=== PATIENT | female | born 1965 | race Caucasian/White ===

== ENCOUNTER 2017-05-08 20:11 | Emergency (ER) | payer MEDICARE, OTHER ==
[2017-05-08 20:22] VITALS: BP 118/58; PULSE 77; RESP 18; TEMP 97.9
[2017-05-08] MEDS ORDERED: diphenhydrAMINE 50 MG CAP PO STA (20:39)
--- NOTE | 2017-05-08 20:40 | ED ---
Skin/Abscess/FB HPI - General Chief complaint: Skin/Abscess/Foreign Body Stated complaint: Rash/Legs Time Seen by Provider: 05/08/17 20:34 Source: patient, RN notes reviewed, old records reviewed Mode of arrival: ambulatory Limitations: no limitations - History of Present Illness Initial comments: This is a 52-year-old female presenting to the emergency department with a chief complaint of bug bites over bilateral Lower legs for the past 8 hours. Patient reports that they are very pruritic. She reports that she was walking outside most of the day. Denies concern for fleas. She reports that she has no other areas that have similiar bites. She denies other exposures that she is aware of. She denies any chest pain, shortness of breath, angioedema, nausea, vomiting, fever, or chills. - Related Data Home Medications Medication Instructions Recorded Confirmed Glimepiride [Amaryl] 1 mg PO BID 11/14/14 02/26/16 metFORMIN HCL [Glucophage] 500 mg PO BID 11/14/14 02/26/16 Previous Rx's Medication Instructions Recorded Ibuprofen [Motrin] 600 mg PO Q6HR PRN #20 tab 11/14/14 Cetirizine HCl [Zyrtec] 10 mg PO DAILY #20 tab 07/06/15 Famotidine [Pepcid] 20 mg PO BID #30 tablet 07/06/15 Cephalexin [Keflex] 500 mg PO Q8HR #30 cap 02/26/16 Sulfamethoxazole/Trimethoprim 1 tab PO Q12H #20 tab 02/26/16 [Bactrim DS 800-160 mg] Hydrocortisone Cream 1 applic TOPICAL QID #1 tube 05/08/17 [Hydrocortisone 1% Cream] diphenhydrAMINE & Zinc Cream 1 applic TOPICAL TID #1 tube 05/08/17 [Benadryl Cream] Allergies Allergy/AdvReac Type Severity Reaction Status Date / Time No Known Allergies Allergy Verified 05/08/17 20:22 Review of Systems ROS Statement: Those systems with pertinent positive or pertinent negative responses have been documented in the HPI. ROS Other: All systems not noted in ROS Statement are negative. Past Medical History Past Medical History: Diabetes Mellitus History of Any Multi-Drug Resistant Organisms: None Reported Past Surgical History: Section Past Psychological History: Bipolar, Depression Smoking Status: Never smoker Past Alcohol Use History: None Reported Past Drug Use History: None Reported General Exam - General Exam Comments Initial Comments: 52 year old female, no distress. Limitations: no limitations General appearance: alert, in no apparent distress Head exam: Present: atraumatic, normocephalic, normal inspection Eye exam: Present: normal appearance, PERRL, EOMI. Absent: scleral icterus, conjunctival injection, periorbital swelling ENT exam: Present: normal exam, mucous membranes moist. Absent: normal oropharynx (poor dentition noted. ) Neck exam: Present: normal inspection. Absent: tenderness, meningismus, lymphadenopathy Respiratory exam: Present: normal lung sounds bilaterally. Absent: respiratory distress, wheezes, rales, rhonchi, stridor Cardiovascular Exam: Present: regular rate, normal rhythm, normal heart sounds. Absent: systolic murmur, diastolic murmur, rubs, gallop, clicks GI/Abdominal exam: Present: soft, normal bowel sounds. Absent: distended, tenderness, guarding, rebound, rigid Back exam: Present: normal inspection Neurological exam: Present: alert, oriented X3, CN II-XII intact Psychiatric exam: Present: normal affect, normal mood Skin exam: Present: warm, dry, intact, normal color, rash (sporadic erythematous welts over bilateral shins. She is wearing a dress, so these areas were exposed to the elements and long grasses. ) Course Vital Signs 05/08/17 20:20 Temperature 97.9 F Pulse Rate 77 Respiratory 18 Rate Blood Pressure 118/58 O2 Sat by Pulse 98 Oximetry Medical Decision Making - Medical Decision Making This is a 52-year-old female presenting to the emergency department with a chief complaint of bug bites over bilateral Lower legs for the past 8 hours. Patient reports that they are very pruritic. She reports that she was walking outside most of the day. Patient does have sporadic erythematous welts over bilateral legs, consistent with insect bite. PAtient given benadryl, and prescription for hydrocortizone cream. Return parameters discussed. Disposition Clinical Impression: Insect bites Disposition: HOME SELF-CARE Condition: Good Additional Instructions: Patient advised to apply the cream over the area. Follow-up with primary care physician. Return to emergency department if any alarming signs or symptoms occur. Prescriptions: diphenhydrAMINE & Zinc Cream [Benadryl Cream] 1 applic TOPICAL TID #1 tube Hydrocortisone Cream [Hydrocortisone 1% Cream] 1 applic TOPICAL QID #1 tube Referrals: Mike Sevilla MD [Primary Care Provider] - 1-2 days Time of Disposition: 20:41
== END 2017-05-08 20:51 | disposition home or self-care (01) ==
LOC: EC 20:11
DX: S80.861A Insect bite (nonvenomous), right lower leg, initial encounter (principal); S80.862A Insect bite (nonvenomous), left lower leg, initial encounter; E11.9 Type 2 diabetes mellitus without complications; Z79.84 Long term (current) use of oral hypoglycemic drugs; W57.XXXA Bitten or stung by nonvenomous insect and other nonvenomous arthropods, initial encounter
CPT/HCPCS: 99283

== ENCOUNTER 2017-10-16 15:07 | Emergency (ER) | payer MEDICARE, OTHER ==
[2017-10-16 15:14] VITALS: BP 144/62; PULSE 70; RESP 18; TEMP 98
[2017-10-16] MEDS ORDERED: DIPH,PERTUS(ACELL)TETVAC-LF 0.5 ML VIAL IM ONE (15:16)
--- NOTE | 2017-10-16 15:42 | ED ---
Skin/Abscess/FB HPI - General Chief complaint: Skin/Abscess/Foreign Body Stated complaint: Hand Lac Time Seen by Provider: 10/16/17 15:15 Source: patient, RN notes reviewed Mode of arrival: ambulatory Limitations: no limitations - History of Present Illness Initial comments: This is a 52-year-old female who presents to the emergency department with chief complaint of hand laceration. Patient states that yesterday morning she was washing dishes and a glass broke cutting the ulnar aspect of her left hand. Patient states that she did not have transportation to the emergency department so contacted EMS. EMS dressed the wound and advised patient to follow up at the emergency department. Patient states she is not up-to-date with her tetanus vaccination. Denies any other injuries. Denies fever, chills, chest pain, shortness of breath, abdominal pain, nausea or vomiting, constipation or diarrhea, dysuria or hematuria, numbness or tingling, headache or vision changes. - Related Data Home Medications Medication Instructions Recorded Confirmed Glimepiride [Amaryl] 1 mg PO BID 11/14/14 10/16/17 metFORMIN HCL [Glucophage] 500 mg PO BID 11/14/14 10/16/17 Previous Rx's Medication Instructions Recorded Cephalexin [Keflex] 500 mg PO Q12HR #20 cap 10/16/17 Allergies Allergy/AdvReac Type Severity Reaction Status Date / Time No Known Allergies Allergy Verified 05/08/17 20:22 Review of Systems ROS Statement: Those systems with pertinent positive or pertinent negative responses have been documented in the HPI. ROS Other: All systems not noted in ROS Statement are negative. Past Medical History Past Medical History: Diabetes Mellitus History of Any Multi-Drug Resistant Organisms: None Reported Past Surgical History: Section, Tubal Ligation Past Psychological History: Bipolar, Depression Smoking Status: Never smoker Past Alcohol Use History: None Reported Past Drug Use History: None Reported General Exam - General Exam Comments Initial Comments: General: Awake and alert, well-developed; in no apparent distress. HEENT: Head atraumatic, normocephalic. Pupils are equal, round and reactive to light. Extraocular movements intact. Poor dentition. Neck: Supple. Normal ROM. Cardiovascular: Regular rate and rhythm. No murmurs, rubs or gallops. Chest symmetrical. Respiratory: Lungs clear to auscultation bilaterally. No wheezes, rales or rhonchi. Normal respiratory effort with no use of accessory muscles. Musculoskeletal: Normal range of motion of left hand and digits. Sensation is intact. Radial pulses are 2+ equal and palpable bilaterally. Skin: [place], warm and dry without rashes. Skin avulsion with remaining skin flap at the left fifth MCP. Bleeding is controlled. Neurological: Alert and oriented x3. CN II-XII grossly intact. Speech is fluent and answers are appropriate. No focal neuro deficits. Psychiatric: Normal mood and affect. No overt signs of depression or anxiety noted. Limitations: no limitations Course Vital Signs 10/16/17 15:10 Temperature 98 F Pulse Rate 70 Respiratory 18 Rate Blood Pressure 144/62 O2 Sat by Pulse 98 Oximetry Medical Decision Making - Medical Decision Making This is a 52-year-old female who presents to the emergency department with chief complaint of left hand laceration. There is a superficial skin avulsion located and left fifth MCP. The wound was extensively irrigated and skin flap was removed. Bleeding is controlled. Bacitracin and a clean dressing were placed. Patient tolerated well without complication. She is neurovascularly intact. Patient will be discharged home. She is going to receive a prescription for antibiotics. Return parameters were discussed. Patient is in agreement with plan and voices understanding. All questions were answered. Disposition Clinical Impression: Avulsion of skin of finger Disposition: HOME SELF-CARE Condition: Good Instructions: Skin Avulsion (ED) Additional Instructions: Please take medications as prescribed. Please follow up with primary care provider within 1-2 days. Return to emergency department if symptoms should worsen or any concerns arise. Prescriptions: Cephalexin [Keflex] 500 mg PO Q12HR #20 cap Referrals: Mike Sevilla MD [Primary Care Provider] - 1-2 days Time of Disposition: 15:41
== END 2017-10-16 16:08 | disposition home or self-care (01) ==
LOC: EC 15:07
DX: S61.402A Unspecified open wound of left hand, initial encounter (principal); E11.9 Type 2 diabetes mellitus without complications; Z23 Encounter for immunization; Z79.84 Long term (current) use of oral hypoglycemic drugs; W25.XXXA Contact with sharp glass, initial encounter; Y93.G1 Activity, food preparation and clean up
CPT/HCPCS: 90471; 90715; 99282

== ENCOUNTER → 2018-09-07 | Outpatient (CLI) | payer MEDICARE, OTHER ==
--- NOTE | 2018-09-10 11:43 | MM ---
Reason for exam: screening (asymptomatic). Last mammogram was performed 4 years and 10 months ago. History: Taking hormonal contraceptives. Physical Findings: A clinical breast exam by your physician is recommended on an annual basis and results should be correlated with mammographic findings. MG 3D Screening Mammo W/Cad Bilateral CC and MLO view(s) were taken. Prior study comparison: November 12, 2013, bilateral digital screening mammo w/CAD. November 11, 2011, bilateral digital screening mammo w/CAD. The breast tissue is heterogeneously dense. This may lower the sensitivity of mammography. Finding #1: There is a 10 mm equal density (isodense) mass in the central position of the right breast. Finding #2: There are typically benign calcifications. ASSESSMENT: Incomplete: need additional imaging evaluation, BI-RAD 0 RECOMMENDATION: Special view mammogram of the right breast. If lesion persists on supplemental views, image directed ultrasound is recommended. [facility] will attempt to contact patient to return for supplemental views and ultrasound if indicated.
== END ==
LOC: RADMAMWWP 10:57
PROVIDERS: ATTEND Family Medicine
DX: Z12.31 Encounter for screening mammogram for malignant neoplasm of breast (principal)
CPT/HCPCS: 77063; 77067

== ENCOUNTER → 2018-10-12 | Outpatient (CLI) | payer MEDICARE, OTHER ==
--- NOTE | 2018-10-12 15:01 | MM ---
Reason for exam: additional evaluation requested from abnormal screening. Last mammogram was performed 1 month ago. History: Patient is postmenopausal. Physical Findings: Nurse did not find any significant physical abnormalities on exam. MG 3D Work Up W/Cad RT Spot compression CC, spot compression MLO, spot compression ML, and ML view(s) were taken of the right breast. Prior study comparison: September 07, 2018, bilateral MG 3d screening mammo w/cad. November 12, 2013, bilateral digital screening mammo w/CAD. The breast tissue is heterogeneously dense. This may lower the sensitivity of mammography. There is no discrete abnormality on compression. These results were verbally communicated with the patient and result sheet given to the patient on 10/12/18. ASSESSMENT: Probably benign, BI-RAD 3 RECOMMENDATION: Follow-up diagnostic mammogram of the right breast in 6 months.
== END | disposition home or self-care (01) ==
LOC: RADMAMWWP 13:00
PROVIDERS: ATTEND Family Medicine
DX: R92.8 Other abnormal and inconclusive findings on diagnostic imaging of breast (principal)
CPT/HCPCS: 77065; G0279; 77061

== ENCOUNTER 2019-04-16 16:09 | Emergency (ER) | payer MEDICARE, OTHER ==
[2019-04-16 16:19] VITALS: BP 114/75; PULSE 63; RESP 18; TEMP 98.3
--- NOTE | 2019-04-16 16:47 | ED ---
Abdominal Pain HPI - General Chief Complaint: Abdominal Pain Stated Complaint: scar pain Time Seen by Provider: 04/16/19 16:31 Source: patient, RN notes reviewed Mode of arrival: ambulatory Limitations: no limitations - History of Present Illness Initial Comments: 53-year-old female presents emergency from chief complaint rash in her lower abd omen. Patient states it's along his ear infection region. Patient states started a few days ago site red and irritated. Patient has not placed anything on this area she's not exactly sure when it started. Patient denies fever, chills no nausea vomiting diarrhea constipation. - Related Data Home Medications Medication Instructions Recorded Confirmed Glimepiride [Amaryl] 1 mg PO BID 11/14/14 01/19/18 metFORMIN HCL [Glucophage] 500 mg PO BID 11/14/14 01/19/18 FLUoxetine HCL [PROzac] 40 mg PO DAILY 01/19/18 01/19/18 Previous Rx's Medication Instructions Recorded Nystatin 100,000Unit/gm Cream 1 applic TOPICAL BID #30 gram 04/16/19 [Mycostatin Cream] Allergies Allergy/AdvReac Type Severity Reaction Status Date / Time No Known Allergies Allergy Verified 04/16/19 16:19 Review of Systems ROS Statement: Those systems with pertinent positive or pertinent negative responses have been documented in the HPI. ROS Other: All systems not noted in ROS Statement are negative. Past Medical History Past Medical History: Diabetes Mellitus History of Any Multi-Drug Resistant Organisms: None Reported Past Surgical History: Section, Tubal Ligation Past Psychological History: Bipolar, Depression Smoking Status: Never smoker Past Alcohol Use History: None Reported Past Drug Use History: None Reported General Exam Limitations: no limitations General appearance: alert, in no apparent distress Head exam: Present: atraumatic, normocephalic, normal inspection Eye exam: Present: normal appearance, PERRL, EOMI. Absent: scleral icterus, conjunctival injection, periorbital swelling ENT exam: Present: normal exam, normal oropharynx, mucous membranes moist Respiratory exam: Present: normal lung sounds bilaterally. Absent: respiratory distress, wheezes, rales, rhonchi, stridor Cardiovascular Exam: Present: regular rate, normal rhythm, normal heart sounds. Absent: systolic murmur, diastolic murmur, rubs, gallop, clicks GI/Abdominal exam: Present: soft, normal bowel sounds. Absent: distended, tenderness, guarding, rebound, rigid Skin exam: Present: warm, dry, intact, normal color, rash (Erythematous rash with foul odor in lower abdominal skin fold) Course Vital Signs 04/16/19 16:15 Temperature 98.3 F Pulse Rate 63 Respiratory 18 Rate Blood Pressure 114/75 O2 Sat by Pulse 98 Oximetry Medical Decision Making - Medical Decision Making 53-year-old female presented for lower abdominal rash. Patient has candidal intertrigo PATIENT WE DISCHARGED WITH [facility]. Disposition Clinical Impression: Candidal intertrigo Disposition: HOME SELF-CARE Condition: Stable Instructions (If sedation given, give patient instructions): Tinea Corporis (ED) Additional Instructions: Please return to the Emergency Department if symptoms worsen or any other concerns. Prescriptions: Nystatin 100,000Unit/gm Cream [Mycostatin Cream] 1 applic TOPICAL BID #30 gram Is patient prescribed a controlled substance at d/c from ED?: No Referrals: Mike Sevilla MD [Primary Care Provider] - 1-2 days Time of Disposition: 16:47
== END 2019-04-16 17:31 | disposition home or self-care (01) ==
LOC: EC 16:09
DX: B37.2 Candidiasis of skin and nail (principal); E11.9 Type 2 diabetes mellitus without complications; F31.9 Bipolar disorder, unspecified; Z98.51 Tubal ligation status; Z79.84 Long term (current) use of oral hypoglycemic drugs; Z79.899 Other long term (current) drug therapy
CPT/HCPCS: 99283

== ENCOUNTER 2019-05-10 19:03 | Emergency (ER) | payer MEDICARE, OTHER ==
[2019-05-10 19:14] VITALS: BP 119/76; PULSE 80; RESP 18; TEMP 98.1
--- NOTE | 2019-05-10 20:14 | XR ---
EXAMINATION TYPE: XR Hip Complete RT DATE OF EXAM: 05/10/2019 CLINICAL HISTORY: Right TECHNIQUE: AP and frogleg views of the right hip are obtained. COMPARISON: 09/07/2012. FINDINGS: There is no acute fracture/dislocation evident in the right hip. The joint space in the r ight hip appears aligned with very minimal medial joint space narrowing. The overlying soft tissue a ppears unremarkable. IMPRESSION: There is no acute fracture or dislocation in the right hip. Minimal right femoral acetab ular arthropathy.
[2019-05-10] MEDS ORDERED: LIDOCAINE 5% PATCH TOPICAL STA (20:36)
--- NOTE | 2019-05-10 20:37 | ED ---
General Adult HPI - General Chief complaint: Extremity Injury, Lower Stated complaint: hip pain Time Seen by Provider: 05/10/19 19:22 Source: patient Mode of arrival: ambulatory Limitations: no limitations - History of Present Illness Initial comments: Patient is a 54-year-old female presenting to emergency Department with a chief complaint of right hip pain. Patient reports chronic hip pain that has recently been exacerbated over the past 2 days. Patient reports limited range of motion due to pain. Patient reports the pain is exacerbated with ambulation and alleviated at rest. Patient denies any numbness or tingling. Patient reports the pain does not radiate anywhere. Patient reports taking [id number] analgesics minimal improvement. Patient reports the pain is a 7 and throbbing. - Related Data Home Medications Medication Instructions Recorded Confirmed Glimepiride [Amaryl] 1 mg PO BID 11/14/14 01/19/18 metFORMIN HCL [Glucophage] 500 mg PO BID 11/14/14 01/19/18 FLUoxetine HCL [PROzac] 40 mg PO DAILY 01/19/18 01/19/18 Previous Rx's Medication Instructions Recorded Nystatin 100,000Unit/gm Cream 1 applic TOPICAL BID #30 gram 04/16/19 [Mycostatin Cream] Allergies Allergy/AdvReac Type Severity Reaction Status Date / Time No Known Allergies Allergy Verified 05/10/19 19:11 Review of Systems ROS Statement: Those systems with pertinent positive or pertinent negative responses have been documented in the HPI. ROS Other: All systems not noted in ROS Statement are negative. Past Medical History Past Medical History: Diabetes Mellitus History of Any Multi-Drug Resistant Organisms: None Reported Past Surgical History: Section, Tubal Ligation Past Psychological History: Bipolar, Depression Smoking Status: Never smoker Past Alcohol Use History: None Reported Past Drug Use History: None Reported General Exam Limitations: no limitations General appearance: alert, in no apparent distress Head exam: Present: atraumatic, normocephalic, normal inspection Eye exam: Present: normal appearance, PERRL, EOMI Pupils: Present: normal accommodation ENT exam: Present: normal exam, mucous membranes moist, normal external ear exam Neck exam: Present: normal inspection, full ROM Respiratory exam: Present: normal lung sounds bilaterally Cardiovascular Exam: Present: regular rate, normal rhythm, normal heart sounds Extremities exam: Present: normal inspection, tenderness (Mild right hip tenderness), normal capillary refill, other (+2 dorsalis pedis and posterior tibialis bilaterally). Absent: full ROM (Limited range of motion in the right hip due to pain. Pain with ambulation), pedal edema, joint swelling, calf tenderness (Negative Homans bilaterally) Back exam: Present: normal inspection, full ROM. Absent: CVA tenderness (R), CVA tenderness (L) Neurological exam: Present: alert, oriented X3 Psychiatric exam: Present: normal affect, normal mood Skin exam: Present: warm, intact, normal color Course Vital Signs 05/10/19 19:11 Temperature 98.1 F Pulse Rate 80 Respiratory 18 Rate Blood Pressure 119/76 O2 Sat by Pulse 98 Oximetry Medical Decision Making - Medical Decision Making Patient is a 54-year-old female presenting to emergency Department with a chief complaint of right hip pain. 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 Patient given a Lidoderm patch. On reevaluation patient reports mild improvement in pain patient advised to follow-up with an client success specialist for further management. Patient advised to alternate between Tylenol and ibuprofen for pain control. Strict return parameters were thoroughly discussed patient is understanding and agreeable. Case discussed with physician. Disposition Clinical Impression: Hip pain Disposition: HOME SELF-CARE Condition: Stable Instructions (If sedation given, give patient instructions): Hip Pain (ED) Additional Instructions: Please follow up with orthopedics. Please return to emergency department if symptoms worsen. Alternate between Tylenol and ibuprofen for pain control. Is patient prescribed a controlled substance at d/c from ED?: No Referrals: Mike Sevilla MD [Primary Care Provider] - 1-2 days Mor Bray DO [Medical Doctor] - 1-2 days Time of Disposition: 20:37
== END 2019-05-10 20:54 | disposition home or self-care (01) ==
LOC: EC 19:03
DX: M25.551 Pain in right hip (principal); E11.9 Type 2 diabetes mellitus without complications; F31.9 Bipolar disorder, unspecified; Z79.84 Long term (current) use of oral hypoglycemic drugs; Z79.899 Other long term (current) drug therapy
CPT/HCPCS: 73502; 99283

== ENCOUNTER → 2019-05-14 | Outpatient (CLI) | payer MEDICARE, OTHER ==
--- NOTE | 2019-05-14 11:29 | MM ---
Reason for exam: additional evaluation requested from prior study. Last mammogram was performed 7 months ago. History: Patient is postmenopausal. Took hormonal contraceptives for 20 years beginning at age 21. Physical Findings: Nurse did not find any significant physical abnormalities on exam. MG 3D Diag Mammo W/Cad RT CC and MLO view(s) were taken of the right breast. Prior study comparison: October 12, 2018, right breast MG 3d work up w/cad RT. September 07, 2018, bilateral MG 3d screening mammo w/cad. The breast tissue is heterogeneously dense. This may lower the sensitivity of mammography. No new suspicious abnormality. Stable right central inner middle depth asymmetry. These results were verbally communicated with the patient and result sheet given to the patient on 05/14/19. ASSESSMENT: Probably benign, BI-RAD 3 RECOMMENDATION: Follow-up diagnostic mammogram of both breasts in 6 months. Back on schedule.
== END | disposition home or self-care (01) ==
LOC: RADMAMWWP 09:14
PROVIDERS: ATTEND Family Medicine
DX: R92.8 Other abnormal and inconclusive findings on diagnostic imaging of breast (principal)
CPT/HCPCS: 77065; G0279; 77061

== ENCOUNTER 2019-06-21 20:35 | Emergency (ER) | payer MEDICARE, OTHER ==
[2019-06-21 20:58] VITALS: BP 119/78; PULSE 66; RESP 18; TEMP 98.1
[2019-06-21 21:02] LABS: Glucose,Whole Blood 187 mg/dL (75-99)
== END 2019-06-21 22:32 | disposition left against medical advice (07) ==
LOC: EC 20:35
DX: H53.8 Other visual disturbances (principal); Z53.21 Procedure and treatment not carried out due to patient leaving prior to being seen by health care provider
CPT/HCPCS: 36415; 99499

== ENCOUNTER → 2019-11-19 | Outpatient (CLI) | payer MEDICARE, OTHER ==
--- NOTE | 2019-11-20 08:28 | MM ---
Reason for exam: follow-up at short interval from prior study. Last mammogram was performed 6 months ago. History: Patient is postmenopausal. Took hormonal contraceptives for 20 years beginning at age 21. Physical Findings: Nurse did not find any significant physical abnormalities on exam. MG 3D Diag Mammo W/Cad RAJIV Bilateral CC and MLO view(s) were taken. Prior study comparison: May 14, 2019, right breast MG 3d diag mammo w/cad RT. October 12, 2018, right breast MG 3d work up w/cad RT. The breast tissue is heterogeneously dense. This may lower the sensitivity of mammography. Stable benign calcifications. There is chronic nodularity bilaterally. There is no dominant lesion. No significant new findings when compared with previous films. These results were verbally communicated with the patient and result sheet given to the patient on 11/19/19. ASSESSMENT: Benign, BI-RAD 2 RECOMMENDATION: Follow-up diagnostic mammogram of both breasts in 1 year.
== END | disposition home or self-care (01) ==
LOC: RADMAMWWP 15:24
PROVIDERS: ATTEND Family Medicine
DX: R92.8 Other abnormal and inconclusive findings on diagnostic imaging of breast (principal)
CPT/HCPCS: 77066; G0279; 77062

== ENCOUNTER 2022-03-30 03:16 | Emergency (ER) | payer MEDICARE, OTHER ==
[2022-03-30 06:05] VITALS: BP 127/66; PULSE 68; RESP 18; TEMP 97.7
[2022-03-30] MEDS ORDERED: ACETAMINOPHEN TAB 500 MG TAB PO STA (06:06)
--- NOTE | 2022-03-30 10:18 | ED ---
General Adult HPI - General Chief complaint: Skin/Abscess/Foreign Body Stated complaint: Sunburn on legs Time Seen by Provider: 03/30/22 10:14 Source: patient Mode of arrival: ambulatory - History of Present Illness Initial comments: Patient is a 56-year-old female who presents for evaluation of sunburn. Patient states she was sitting partially initiated yesterday and did not realize is on was on her. Patient reports sunburn over the bilateral shins. She denies any blister formation. Reports minimal pain. Has not taken any medication or used any topicals for the pain. Patient states she was wearing sunscreen. - Related Data Home Medications Medication Instructions Recorded Confirmed Glimepiride [Amaryl] 1 mg PO BID 11/14/14 01/19/18 metFORMIN HCL [Glucophage] 500 mg PO BID 11/14/14 01/19/18 FLUoxetine HCL [PROzac] 40 mg PO DAILY 01/19/18 01/19/18 Previous Rx's Medication Instructions Recorded Nystatin 100,000Unit/gm Cream 1 applic TOPICAL BID #30 gram 04/16/19 [Mycostatin Cream] Ibuprofen [Motrin] 800 mg PO Q8HR PRN 7 Days #21 tab 03/30/22 Allergies Allergy/AdvReac Type Severity Reaction Status Date / Time No Known Allergies Allergy Verified 06/21/19 20:58 Review of Systems ROS Statement: Those systems with pertinent positive or pertinent negative responses have been documented in the HPI. ROS Other: All systems not noted in ROS Statement are negative. Past Medical History Past Medical History: Diabetes Mellitus History of Any Multi-Drug Resistant Organisms: None Reported Past Surgical History: Section, Tubal Ligation Past Psychological History: Bipolar, Depression Smoking Status: Never smoker Past Alcohol Use History: None Reported Past Drug Use History: None Reported General Exam General appearance: alert, in no apparent distress Head exam: Present: atraumatic, normocephalic, normal inspection Eye exam: Present: normal appearance, PERRL, EOMI. Absent: scleral icterus, conjunctival injection, periorbital swelling Respiratory exam: Present: normal lung sounds bilaterally. Absent: respiratory distress, wheezes, rales, rhonchi, stridor Cardiovascular Exam: Present: regular rate, normal rhythm, normal heart sounds. Absent: systolic murmur, diastolic murmur, rubs, gallop, clicks Extremities exam: Present: other (First-degree baez over distal legs near ankle bilaterally) Neurological exam: Present: alert, oriented X3, CN II-XII intact Psychiatric exam: Present: normal affect, normal mood Skin exam: Present: warm, dry, intact, normal color. Absent: rash Course Vital Signs 03/30/22 05:58 Temperature 97.7 F Pulse Rate 68 Respiratory 18 Rate Blood Pressure 127/66 O2 Sat by Pulse 98 Oximetry Medical Decision Making - Medical Decision Making This is a 56-year-old female who presents for evaluation of sunburn. Thorough history and examination were performed. There are first-degree baez over the distal lower legs near the ankle bilaterally. There is no blistering. Sunburn education provided. Patient will be discharged with Motrin 800. She is encouraged to use aloe over the sunburn. She was educated on use of sunscreen to prevent sunburn and skin cancer. She verbalizes understanding and is agreeable to this plan. Dr. Serna is my attending. Disposition Clinical Impression: Sunburn of first degree Disposition: HOME SELF-CARE Condition: Good Instructions (If sedation given, give patient instructions): Sunburn (ED) Additional Instructions: Please take medication as directed. Applying aloe and cold compress to the burn itself will help relieve symptoms. If the baez developed into blisters do not pick at them as they will heal on their own. Increase water intake to stay hydrated. Is very important to wear sunscreen when you are outside in the summer. You may need a stronger sunscreen. Follow-up with primary care provider in one to 2 days. Return to the emergency department if you experience new, concerning, or worsening symptoms Prescriptions: Ibuprofen [Motrin] 800 mg PO Q8HR PRN 7 Days #21 tab PRN Reason: Pain Is patient prescribed a controlled substance at d/c from ED?: No Referrals: Mike Sevilla MD [Primary Care Provider] - 1-2 days Time of Disposition: 10:18
== END 2022-03-30 10:26 | disposition home or self-care (01) ==
LOC: EC 03:16
DX: L55.0 Sunburn of first degree (principal); E11.9 Type 2 diabetes mellitus without complications; Z79.84 Long term (current) use of oral hypoglycemic drugs
CPT/HCPCS: 99282

== ENCOUNTER → 2022-09-19 | Outpatient (CLI) | payer MEDICARE, OTHER ==
--- NOTE | 2022-09-19 14:43 | MM ---
Reason for Exam: Follow-up at short interval from prior study. Last mammogram was performed 2 year(s) and 10 month(s) ago. Patient History: Menarche at age 13. First Full-Term at age 20. Postmenopausal. Hormonal Contraceptives for 20 years from age 21 until age 41. Paternal aunt had breast cancer. Risk Values: Yisel 5 year model risk: 0.9%. NCI Lifetime model risk: 5.9%. Tissue Density: The breast tissue is heterogeneously dense. This may lower the sensitivity of mammography. Findings: Analyzed By CAD. Additional and MLO spot compression and ML views were obtained of the left breast. No suspicious masses distortions or calcifications of either breast. Overall Assessment: Negative, BI-RAD 1 Management: Screening Mammogram of both breasts in 1 year. A clinical breast exam by your physician is recommended on an annual basis and results should be correlated with mammographic findings. This exam should not preclude additional follow-up of suspicious palpable abnormalities. Results were given to the patient verbally at the time of exam. Electronically signed and approved by: Urbano Erwin DO
== END | disposition home or self-care (01) ==
LOC: RADMAMWWP 13:38
PROVIDERS: ATTEND Family Medicine
DX: R92.8 Other abnormal and inconclusive findings on diagnostic imaging of breast (principal); Z78.0 Asymptomatic menopausal state; Z80.3 Family history of malignant neoplasm of breast
CPT/HCPCS: 77066; G0279; 77062

== ENCOUNTER → 2023-09-20 | Outpatient (CLI) | payer MEDICARE, OTHER ==
--- NOTE | 2023-09-21 11:52 | MM ---
Reason for Exam: Screening (asymptomatic). Last screening mammogram was performed 12 month(s) ago. Patient History: Menarche at age 13. First Full-Term at age 20. Postmenopausal. Hormonal Contraceptives for 20 years from age 21 until age 41. Paternal aunt had breast cancer. Sister had breast cancer. Risk Values: Yisel 5 year model risk: 2.4%. NCI Lifetime model risk: 14.2%. Prior Study Comparison: 05/14/2019 Right Diagnostic Mammogram, [facility]. 11/19/2019 Bilateral Diagnostic Mammogram, [facility]. 09/19/2022 Bilateral MG 3D diag mammo w/cad RAJIV, [facility]. Tissue Density: The breast tissue is heterogeneously dense. This may lower the sensitivity of mammography. Findings: Analyzed By CAD. There is no suspicious group of microcalcifications or new suspicious mass. Overall Assessment: Negative, BI-RAD 1 Management: Screening Mammogram of both breasts in [address] [facility] will attempt to contact patient to return for supplemental views and ultrasound if indicated. Patient should continue monthly self-breast exams. A clinical breast exam by your physician is recommended on an annual basis. This exam should not preclude additional follow-up of suspicious palpable abnormalities. Note on Yisel scores and lifetime risk: 1. A Yisel score greater than 3% is considered moderate risk. If this is the case, consider specialist referral to assess eligibility for a risk reducing agent. 2. If overall lifetime risk for the development of breast cancer is 20% or higher, the patient may qualify for future screening with alternating mammogram and breast MRI. Electronically signed and approved by: Urbano Erwin DO
== END | disposition home or self-care (01) ==
LOC: RADMAMWWP 09:13
PROVIDERS: ATTEND Family Medicine
DX: Z12.31 Encounter for screening mammogram for malignant neoplasm of breast (principal); Z80.3 Family history of malignant neoplasm of breast; Z78.0 Asymptomatic menopausal state
CPT/HCPCS: 77063; 77067

== ENCOUNTER 2024-02-16 17:26 | Emergency (ER) | payer OTHER, MEDICARE ==
[2024-02-16 19:09] VITALS: TEMP 97.9
[2024-02-16 20:15] LABS: Appearance,Urine Clear (Clear); Bilirubin,Urine Negative (Negative); Blood,Urine Negative (Negative); Color,Urine Colorless; Glucose,Urine (UA) Negative (Negative); Ketones,Urine Negative (Negative); Leukocyte Esterase,Urine Negative (Negative); Nitrite,Urine Negative (Negative); Protein,Urine Negative (Negative); Urobilinogen,Urine <2.0 mg/dL (<2.0)
--- NOTE | 2024-02-16 21:19 | ED ---
General Adult HPI - General Chief complaint: Fall Stated complaint: Fall-R side pain Time Seen by Provider: 02/16/24 17:49 Source: patient, RN notes reviewed Mode of arrival: ambulatory Limitations: no limitations - History of Present Illness Initial comments: 58-year-old female presents to the emergency department for evaluation of right- sided rib/chest wall pain. Patient states that this started on Monday after she took a fall on the bus. She notes that over the past 2 days she noticed some bruising over her ribs. Patient notes that it is tender to touch in this area. She denies any difficulty breathing, abdominal pain. Denies any other injury from the fall. Denies head injury. - Related Data Home Medications Medication Instructions Recorded Confirmed Glimepiride [Amaryl] 1 mg PO BID 11/14/14 01/19/18 metFORMIN HCL [Glucophage] 500 mg PO BID 11/14/14 01/19/18 FLUoxetine HCL [PROzac] 40 mg PO DAILY 01/19/18 01/19/18 Previous Rx's Medication Instructions Recorded Nystatin 100,000Unit/gm Cream 1 applic TOPICAL BID #30 gram 04/16/19 [Mycostatin Cream] Ibuprofen [Motrin] 800 mg PO Q8HR PRN 7 Days #21 tab 03/30/22 Cyclobenzaprine [Flexeril] 5 mg PO TID PRN #15 tablet 02/16/24 Allergies Allergy/AdvReac Type Severity Reaction Status Date / Time No Known Allergies Allergy Verified 02/16/24 17:35 Review of Systems ROS Statement: Those systems with pertinent positive or pertinent negative responses have been documented in the HPI. ROS Other: All systems not noted in ROS Statement are negative. Past Medical History Past Medical History: Diabetes Mellitus History of Any Multi-Drug Resistant Organisms: None Reported Past Surgical History: Section, Tubal Ligation Past Psychological History: Bipolar, Depression Smoking Status: Never smoker Past Alcohol Use History: None Reported Past Drug Use History: None Reported General Exam Limitations: no limitations General appearance: alert, in no apparent distress Head exam: Present: atraumatic, normocephalic, normal inspection Eye exam: Present: normal appearance, PERRL, EOMI. Absent: scleral icterus, conjunctival injection, periorbital swelling ENT exam: Present: normal exam, mucous membranes moist Neck exam: Present: normal inspection. Absent: tenderness, meningismus, lymphadenopathy Respiratory exam: Present: normal lung sounds bilaterally, chest wall tenderness. Absent: respiratory distress, wheezes, rales, rhonchi, stridor Cardiovascular Exam: Present: regular rate, normal rhythm, normal heart sounds. Absent: systolic murmur, diastolic murmur, rubs, gallop, clicks GI/Abdominal exam: Present: soft, normal bowel sounds. Absent: distended, tenderness, guarding, rebound, rigid Extremities exam: Present: normal inspection, full ROM, normal capillary refill. Absent: tenderness, pedal edema, joint swelling, calf tenderness Back exam: Present: normal inspection Neurological exam: Present: alert, oriented X3, CN II-XII intact Psychiatric exam: Present: normal affect, normal mood Skin exam: Present: warm, dry, intact, other (Ecchymosis to right posterior lateral chest wall). Absent: normal color, rash Course Vital Signs 02/16/24 02/16/24 02/16/24 17:30 18:15 21:35 Temperature 97.6 F 97.9 F Pulse Rate 68 71 58 L Respiratory 20 16 18 Rate Blood Pressure 174/99 112/68 142/74 O2 Sat by Pulse 99 97 97 Oximetry Medical Decision Making - Medical Decision Making Was pt. sent in by a medical professional or institution (, PA, DIRECTOR OF DIETARY, urgent care, hospital, or penitentiary...) When possible be specific @ -No Did you speak to anyone other than the patient for history (EMS, parent, family, police, friend...)? What history was obtained from this source @ -No Did you review nursing and triage notes (agree or disagree)? Why? @ -I reviewed and agree with nursing and triage notes Were old charts reviewed (outside hosp., previous admission, EMS record, old EKG, old radiological studies, urgent care reports/EKG's, penitentiary records)? Report findings @ -No old charts were reviewed Differential Diagnosis (chest pain, altered mental status, abdominal pain women, abdominal pain men, vaginal bleeding, weakness, fever, dyspnea, syncope, headache, dizziness, GI bleed, back pain, seizure, CVA, palpatations, mental health, musculoskeletal)? @ -Differential Musculoskeletal Muscular strain, contusion, ligament sprain, fracture, arthritis, septic arthritis, bursitis, cellulitis, muscle spasm, nerve compression, DVT, arterial occlusion, herpes zoster, electrolyte abnormality, tumor.... This is not meant to be in all inclusive list EKG interpreted by me (3pts min.). @ -None X-rays interpreted by me (1pt min.). @ -X-ray chest and ribs shows no evidence of acute fracture or pneumothorax CT interpreted by me (1pt min.). @ -None done U/S interpreted by me (1pt. min.). @ -None done What testing was considered but not performed or refused? (CT, X-rays, U/S, labs)? Why? @ -None What meds were considered but not given or refused? Why? @ -None Did you discuss the management of the patient with other professionals (professionals i.e. , PA, DIRECTOR OF DIETARY, lab, RT, psych nurse, social science research assistant, it technical architect, teacher, loan review officer, case work aide)? Give summary @ -No Was smoking cessation discussed for >3mins.? @ -No Was critical care preformed (if so, how long)? @ -No Were there social determinants of health that impacted care today? How? (Homelessness, low income, unemployed, alcoholism, drug addiction, transportation, low edu. Level, literacy, decrease access to med. care, [facility], rehab)? @ -No Was there de-escalation of care discussed even if they declined (Discuss DNR or withdrawal of care, Hospice)? DNR status @ -No What co-morbidities impacted this encounter? (DM, HTN, Smoking, COPD, CAD, Cancer, CVA, ARF, Chemo, Hep., AIDS, mental health diagnosis, sleep apnea, morbid obesity)? @ -None Was patient admitted / discharged? Hospital course, mention meds given and route, prescriptions, significant lab abnormalities, going to OR and other pertinent info. @ -Discharge. Patient presented to the emergency department for evaluation of right rib injury. Patient underwent urinalysis which is negative for blood, negative for signs of infectious process. Patient underwent x-rays. There was significant delay in x-ray reports. X-ray was therefore reviewed by myself and my attending, Dr. Villatoro, we did not appreciate any acute fractures. Patient advised on this. Discussed with patient that she will be called if the radiologist read shows any significant finding. Otherwise advised to rest, ice, utilize Tylenol and Motrin for discomfort. Patient is understanding agreeable with plan. X-ray report reviewed following patient discharge which shows no magdy dence of acute fracture. Patient stable at time of discharge. Undiagnosed new problem with uncertain prognosis? @ -No Drug Therapy requiring intensive monitoring for toxicity (Heparin, Nitro, Insuli n, Cardizem)? @ -No Were any procedures done? @ -No Diagnosis/symptom? @ -Rib contusion Acute, or Chronic, or Acute on Chronic? @ -Acute Uncomplicated (without systemic symptoms) or Complicated (systemic symptoms)? @ -Uncomplicated Side effects of treatment? @ -No Exacerbation, Progression, or Severe Exacerbation? @ -No Poses a threat to life or bodily function? How? (Chest pain, [place], [place], pneumonia, PE, COPD, DKA, ARF, appy, cholecystitis, CVA, Diverticulitis, Homicidal, Suicidal, threat to staff... and all critical care pts) @ -No - Lab Data Lab Results 02/16/24 Range/Units 19:54 Urine Color Colorless Urine Appearance Clear (Clear) Urine pH 5.0 (5.0-8.0) Ur Specific [place] 1.010 (1.001-1.035) Urine Protein Negative (Negative) Urine Glucose (UA) Negative (Negative) Urine Ketones Negative (Negative) Urine Blood Negative (Negative) Urine Nitrite Negative (Negative) Urine Bilirubin Negative (Negative) Urine Urobilinogen <2.0 (<2.0) mg/dL Ur Leukocyte Esterase Negative (Negative) Disposition Clinical Impression: Fall, Rib contusion Disposition: HOME SELF-CARE Condition: Stable Instructions (If sedation given, give patient instructions): Rib Contusion (ED) Additional Instructions: Please do not drive or operate heavy machinery while taking muscle relaxers. Follow up with your primary care provider. Return to the emergency department for new or worsening symptoms. Prescriptions: Cyclobenzaprine [Flexeril] 5 mg PO TID PRN #15 tablet PRN Reason: Muscle Spasm Is patient prescribed a controlled substance at d/c from ED?: No Referrals: Mike Sevilla MD [Primary Care Provider] - 1-2 days
--- NOTE | 2024-02-16 21:27 | XR ---
EXAMINATION TYPE: XR ribs RT w pa chest xray DATE OF EXAM: 02/16/2024 7:29 PM CLINICAL INDICATION:Female, 58 years old with history of fall; [facility] COMPARISON: TECHNIQUE: Frontal and oblique views of the right ribs with frontal chest radiograph. FINDINGS: No evidence of acute displaced or deforming rib fracture. No evidence of lung contusion, pl eural fluid collection, or pneumothorax. If there is persistent concern, CT can be obtained to assess for occult injury. IMPRESSION: No evidence of displaced rib fracture, or pneumothorax.
[2024-02-16] MEDS: ACET/COD 300 MG/30 MG STARTER PACK 6 TAB BTL PO STA (21:33)
[2024-02-16 21:49] VITALS: BP 142/74; PULSE 58; RESP 18
== END 2024-02-16 21:37 | disposition home or self-care (01) ==
LOC: EC 17:26
DX: S20.219A Contusion of unspecified front wall of thorax, initial encounter (principal); W01.0XXA Fall on same level from slipping, tripping and stumbling without subsequent striking against object, initial encounter
CPT/HCPCS: 81003; 99284